=== PATIENT | male | born 1950 | race Caucasian/White ===

== ENCOUNTER → 2021-05-20 07:57 | Outpatient (CLI) | payer MEDICARE, OTHER, SELFPAY ==
--- NOTE | 2021-05-20 | DI.ECHO.S_ITS ---
[facility]---------+ [facility] +---------+ : : [address] : : : : [id number] : : : : Phone: [phone]+ Echocardiogram Report + + :Name: MARINA CHERRY Study Date: 05/20/2021 Height: 67 in : :[facility] ReadingLocation: Weight: 165 lb : : Gender: Male BSA: 1.9 m2 : :: 1950 Age: 70 yrs BP: 175/93 mmHg: :Reason For Study: CARDIAC MURMUR : :Ordering Physician: LUCAS : :EMILIANO Performed By: Beryl Li : :Referring: EMILIANO ZAVALA : + + Interpretation Summary The left ventricle is normal in size. There is mild concentric left ventricular hypertrophy. Left ventricular systolic function appears normal without focal wall motion abnormalities. The ejection fraction is estimated to be 65-70%. The right ventricle is borderline dilated. The right ventricular systolic function is normal. The left atrium is mildly dilated. Right atrial size is normal. There is moderate aortic regurgitation. The aortic valve is trileaflet. The aortic root is moderately dilated. The ascending aorta is mildly enlarged. Procedure: A two-dimensional transthoracic echocardiogram with color flow and Doppler was performed. The study quality was technically adequate. There is no prior echocardiogram noted for this patient. The patient was in sinus rhythm with heart rates between 60-71 bpm during the exam. Left Ventricle: The left ventricle is normal in size. There is mild concentric left ventricular hypertrophy. Left ventricular systolic function appears normal without focal wall motion abnormalities. The ejection fraction is estimated to be 65-70%. Diastolic function could not be accurately assessed due to contradictory data. Right Ventricle: The right ventricle is borderline dilated. The right ventricular systolic function is normal. Atria: The left atrium is mildly dilated. Right atrial size is normal. There is no Doppler evidence for an interatrial shunt. Mitral Valve: The mitral valve is normal in structure and function. There is trace mitral regurgitation. Aortic Valve: The aortic valve is trileaflet. The aortic valve opens well. There is moderate aortic regurgitation. Tricuspid Valve: The tricuspid valve is normal in structure and function. There is trace tricuspid regurgitation. Pulmonic Valve: The pulmonic valve leaflets are thin and pliable; valve motion is normal. There is trace pulmonic regurgitation. Great Vessels: The aortic root is moderately dilated. The ascending aorta is mildly enlarged. The IVC is of normal diameter and collapses greater than 50% with a sniff. This suggests a low right atrial pressure of 3 mm Hg. Pericardium/ Pleura There is no pericardial effusion. There is no pleural effusion. MMode/2D Measurements & Calculations LVIDd: 5.5 cm LVOT diam: 2.3 cm LVIDs: 3.7 cm Ao root diam: 4.5 cm FS: 32.7 % asc Aorta Diam: 3.6 cm IVSd: 1.3 cm Ao Arch Diam (Prox Trans): 2.6 cm LVPWd: 1.1 cm LV flannery. diameter/BSA (cm/m^2): 2.9 LV sys. diameter/BSA (cm/m^2): 2.0 LA A2 area: 23.5 cm2 RA long axis: 5.0 cm LA A4 area: 18.4 cm2 RA area: 14.6 cm2 LA length (vol): 5.3 cm RA vol: 36.1 ml LA vol: 69.7 ml RA : 19.4 ml/m2 LA vol index: 37.4 ml/m2 IVC diam: 1.3 cm RVD1 (basal): 4.2 cm TAPSE: 3.2 cm Doppler Measurements & Calculations Ao V2 max: 222.7 cm/sec LVOT Max Nhan: 118.2 cm/sec Ao V2 mean: 150.6 cm/sec LV V1 max P.6 mmHg Ao max P.9 mmHg LV V1 VTI: 23.8 cm Ao mean P.5 mmHg YUNIER(I,D): 2.1 cm2 Ao V2 VTI: 47.3 cm YUNIER(V,D): 2.2 cm2 sev ratio: 0.50 YUNIER indexed to BSA (cm^2/m^2): 1.1 AI P1/2t: 458.1 msec AI dec slope: 273.4 cm/sec2 MV E max nhan: 75.5 cm/sec PA pr(Accel): 20.8 mmHg MV A max nhan: 65.7 cm/sec MV E/A: 1.1 Med Peak E' Nhan: 4.9 cm/sec E/E' med: 15.5 Lat Peak E' Nhan: 5.7 cm/sec E/E' lat: 13.3 E/e' average: 14.4 MV dec time: 0.23 sec SV(LVOT): 99.3 ml Reading Physician:01:[id number] PM
== END ==
PROVIDERS: PCP Family Medicine; Referring Provider Family Medicine; Visit Provider Family Medicine
DX: R01.1 Cardiac murmur, unspecified (principal); I51.7 Cardiomegaly; I35.1 Nonrheumatic aortic (valve) insufficiency; I34.0 Nonrheumatic mitral (valve) insufficiency; I07.1 Rheumatic tricuspid insufficiency; I37.1 Nonrheumatic pulmonary valve insufficiency
CPT/HCPCS: 93306

== ENCOUNTER 2023-04-25 07:54 | Outpatient (RCR) | payer MEDICARE, OTHER, SELFPAY | END 2023-04-25 10:30 | LOC: CAR 07:54 | PROVIDERS: PCP Family Medicine; Referring Provider Thoracic Surgery (Cardiothoracic Vascular Surgery); Visit Provider Thoracic Surgery (Cardiothoracic Vascular Surgery) | DX: Z95.2 Presence of prosthetic heart valve (principal) | CPT/HCPCS: 93798 ==

== ENCOUNTER → 2023-12-19 | Outpatient (CLI) | payer MEDICARE, OTHER, SELFPAY ==
--- NOTE | 2023-12-20 16:52 | DI.NM.S_ITS ---
DATE OF SERVICE: 12/19/2023 PROCEDURE: Exercise perfusion study. INDICATIONS: Exertional shortness of breath. RADIOPHARMACEUTICAL: 25.7 mCi technetium-99m Myoview IV was injected at stress and 26.4 mCi technetium-99m Myoview IV was injected at rest. CARDIAC STRESS: The patient underwent exercise perfusion study under the supervision of an attending staff. The patient walked on Gen protocol for 12 minutes and 58 seconds, achieved 103% of target heart rate with maximum heart rate of 154. Resting blood pressure 144/86 and peak blood pressure over 200/100 mmHg. ZENA -81%. Achieved 13.6 METs of workload. Baseline rhythm sinus. During stress, no convincing ischemic changes seen. Occasional PVCs and couplet without any ventricular tachycardia. No chest pain. Has some shortness of breath. RAW DATA: There is increased subdiaphragmatic activity. GATED STUDY: Stress LV ejection fraction 73% and resting LV ejection fraction is 69% without any significant wall motion abnormalities. Resting end-diastolic volume 115 mL. TID ratio 0.87, which is within normal limits. Lung/heart ratio 0.25, which is within normal limit. MYOCARDIAL PERFUSION SCAN: Stress supine, resting supine, and stress prone images were compared to each other. Stress supine images revealed small size, mildly decreased perfusion of inferoapex which got completely resolved during stress prone images suggestive of tissue attenuation artifact. Stress prone images revealed normal myocardial perfusion. CONCLUSION: This is a normal myocardial perfusion study with evidence of tissue attenuation artifact, which got improved during stress prone images. Excellent exercise tolerance. ZENA -81%. HTN BP response. No anginal symptoms. No ischemic EKG changes. Occasional PVCs without any ventricular tachycardia. Overall, low-risk exercise stress test. Ahsan Kramer - [employer]/fn/MI doc#: [id number]/job#: [id number] dd: 12/20/2023 13:02:00 dt: 12/20/2023 16:44:00 DICTATING MD/COPIES TO: Nasir Vance MD COPIES MNE: JAYNE;
== END ==
LOC: NUCM 09:56
PROVIDERS: PCP Student in an Organized Health Care Education/Training Program; Referring Provider Student in an Organized Health Care Education/Training Program; Visit Provider Student in an Organized Health Care Education/Training Program
DX: R06.09 Other forms of dyspnea (principal)
CPT/HCPCS: 78452; 93017; A9502

== ENCOUNTER → 2024-11-15 12:41 | Outpatient (CLI) | payer MEDICARE, OTHER, SELFPAY ==
--- NOTE | 2024-11-15 | DI.MRI.S_ITS ---
PROCEDURE: MR ANKLE LT WO CON INDICATIONS: STRAIN OF LEFT ACHILLES TENDON TECHNIQUE: Noncontrast sagittal T1 spin echo and T2 fast spin echo with fat saturation, axial proton density fast spin echo and T2 fast spin echo with fat saturation, coronal T1 spin echo and T2 fast spin echo with fat saturation through the ankle/hindfoot. COMPARISON: None. FINDINGS: Image quality: Excellent. Bones and joints: No acute trabecular bone injury or fracture. No hindfoot coalitions. No osteochondral injuries of the talar dome. Mild degenerative changes at the naviculocuneiform articulations with mild subchondral edema. Mild degenerative changes at the 3rd and 4th tarsometatarsal joints. Medial structures: The deltoid ligament and the spring ligament complex are intact. Mild distal posterior tibialis tendinosis and tenosynovitis. The flexor digitorum longus and flexor hallucis longus tendons are intact. The posterior tibial neurovascular bundle appears normal within the tarsal tunnel, without extrinsic mass effect. Mild nonspecific subcutaneous edema surrounding the ankle. Lateral structures: Remote prior low-grade sprain of the anterior tibiofibular ligament. Posterior tibiofibular ligament is intact. Remote prior low to moderate grade sprains of the anterior talofibular ligament and the calcaneofibular ligament. The posterior talofibular ligament is intact. Moderate peroneus brevis and longus tendinosis and tenosynovitis. Partial effacement of the fat signal in the sinus tarsi. Anterior structures: The tibialis anterior, extensor hallucis longus, and extensor digitorum longus tendons appear intact. Posterior and plantar structures: Partial tearing of the Achilles tendon at the mild tendinous junction approximately 9 cm above the calcaneal insertion extending beyond the superior margin of the field of view of the exam. The tear involves approximately 25% of the cross-sectional area of the tendon and is superimposed on moderate tendinosis The proximal plantar fascia is thickened without surrounding edema. No abductor digiti minimi muscle atrophy to suggest Naik neuropathy. IMPRESSION: 1. Partial tearing of the Achilles tendon at the myotendinous junction involving approximately 25% of the cross-sectional area of the tendon. Moderate chronic tendinosis. 2. Remote prior grade 1-2 sprains of the anterior talofibular ligament and the calcaneofibular ligament. Remote prior grade 1 sprain of the anterior tibiofibular ligament. 3. Moderate peroneus brevis and longus tendinosis and tenosynovitis. 4. Mild distal posterior tibialis tendinosis and tenosynovitis. 5. Mild midfoot osteoarthrosis. 6. Moderate chronic proximal plantar fasciitis. Approved by: Robe Washington M.D. on 11/18/2024 at 12:41
== END ==
PROVIDERS: PCP Student in an Organized Health Care Education/Training Program; Referring Provider Physician Assistant Surgical; Visit Provider Physician Assistant Surgical
DX: S86.012A Strain of left Achilles tendon, initial encounter (principal); S93.492A Sprain of other ligament of left ankle, initial encounter; S93.412A Sprain of calcaneofibular ligament of left ankle, initial encounter; S93.432A Sprain of tibiofibular ligament of left ankle, initial encounter; M65.972 Unspecified synovitis and tenosynovitis, left ankle and foot; M19.012 Primary osteoarthritis, left shoulder; M72.2 Plantar fascial fibromatosis; X58.XXXA Exposure to other specified factors, initial encounter
CPT/HCPCS: 73721